=== PATIENT | male | born 1985 | race Caucasian/White ===

== ENCOUNTER 2019-12-08 03:00 | Observation (INO) ==
[2019-12-08] MEDS ORDERED: Aspirin 325 MG TABLET PO ONE (03:28)
[2019-12-08 03:32] LABS: Basophils % 0.8 %; Eosinophils # 0.1 K/mcL (0.0-0.6); Hematocrit 41.9 % (37.5-50.1); Hemoglobin 14.8 g/dL (12.9-16.9); Immature Granulocytes % 0.4 % (0-4); Lymphocytes % 38.5 %; Mean Corpuscular HGB Conc 35.3 g/dL (31.6-35.5); Mean Corpuscular Hemoglobin 31.5 pg (28.0-33.3); Mean Corpuscular Volume 89.1 fL (83.0-100.0); Mean Platelet Volume 8.6 fL (9.4-12.4); Monocytes # 0.5 K/mcL (0.0-1.3); Monocytes % 9.1 %; Neutrophils # 2.5 K/mcL (1.6-8.9); Platelet Count 200 K/mcL (140-400); Segmented Neutrophils % 49.2 %; White Blood Count 5.1 K/mcL (4.3-11.1)
[2019-12-08 03:47] LABS: Bilirubin,Urine Negative (Negative); Blood,Urine Negative (Negative); Clarity,Urine Clear (Clear); Color,Urine Light-Yellow (Yellow); Glucose,Urine (UA) Normal (Normal); Ketones,Urine Negative (Negative); Leukocyte Esterase,Urine Negative (Negative); Nitrite,Urine Negative (Negative); PH,Urine 6.5 pH Units (5.0-8.0); Protein,Urine Trace mg/dL (Neg-Trace); Specific Gravity,Urine 1.017 (1.010-1.025); Urobilinogen,Urine Normal (Normal)
[2019-12-08 03:53] LABS: BUN/Creatinine Ratio 11 (6-26); Blood Urea Nitrogen 11 mg/dL (6-20); Calcium 9.2 mg/dL (8.6-10.3); Carbon Dioxide 23 mEq/L (23-29); Chloride 100 mEq/L (98-107); Glucose 132 mg/dL (70-105); Osmolality,Calculated 283 (280-300); Potassium 3.3 mEq/L (3.5-5.1); Sodium 136 mEq/L (136-145); eGFR For African Americans > 60 (> 60); eGFR For Non-African Americans > 60 (> 60)
[2019-12-08 03:54] LABS: Troponin I < 0.03 ng/mL (< 0.04)
[2019-12-08] MEDS ORDERED: Naloxone 0.4 MG/ML INJ IVP PRN (04:49)
[2019-12-08 06:56] VITALS: BP 113/82
[2019-12-08] MEDS ORDERED: *HR* Heparin 5,000 UNIT/ML VIAL SQ SCH (18:00)
== END 2019-12-08 11:27 | disposition home or self-care (01) ==
LOC: 3BNU 03:00 → EMEROOARM 03:00 → 3BNU 04:43
PROVIDERS: ADMIT Family Medicine; ATTEND Family Medicine